=== PATIENT | male | born 1960 | race Caucasian/White ===

== ENCOUNTER 2017-07-01 10:49 | Inpatient (IN) ==
[2017-07-01] MEDS ORDERED: 0.9 % Sodium Chloride 2,000 ML ONE (10:51)
[2017-07-01] MEDS ORDERED: *HR* FentaNYL (PF) 100 MCG/2 ML VIAL ONE (10:53)
[2017-07-01] MEDS ORDERED: Aspirin 81 MG TAB.CHEW ONE (10:53)
[2017-07-01] MEDS ORDERED: *HR* Ticagrelor 90 MG TABLET ONE (10:53)
[2017-07-01] MEDS ORDERED: *HR* Heparin 5,000 UNIT/ML VIAL ONE (10:53)
[2017-07-01] MEDS ORDERED: *HR* Ticagrelor 90 MG TABLET PO ONE (10:59)
[2017-07-01] MEDS ORDERED: *HR* Heparin 5,000 UNIT/ML VIAL IVP ONE (10:59)
[2017-07-01] MEDS ORDERED: 0.9 % Sodium Chloride 1,000 ML IVC ONE (11:00)
[2017-07-01] MEDS ORDERED: *HR* Heparin 10,000 UNIT/10 ML VIAL ONE (11:00)
[2017-07-01] MEDS ORDERED: Nitroglycerin 1,000 MCG/10 ML VIAL IV ONE (11:01)
[2017-07-01] MEDS ORDERED: Heparin 1,000 UNITS/500 mL 500 ML ONE (11:01)
--- NOTE | 2017-07-01 11:01 | Emergency Department Note ---
START Narrative - START START: I examined this patient and my medical decision-making was reviewed with the Resident Physician. I agree with the documented findings, disposition and treatment plan as described except to the extent set forth below. 56-year-old male presents to the emergency room with chest pain and hypotension. EKG concerning for an inferior ischemia. We have alerted the catheter lab team. Patient will be sent to catheter lab. Dr. Paul spoke with the hearing aid fitter.
[2017-07-01] MEDS: 0.9 % Sodium Chloride 1,000 ML IVC SCH ×4 (11:03→20:34)
--- NOTE | 2017-07-01 11:03 | Emergency Department Note ---
Disposition Clinical Impression: ST elevation myocardial infarction (STEMI) Disposition: Admitted As Inpatient Condition: Critical Time of Disposition: 11:14 Chest Pain HPI - General Chief Complaint: ED Chest Pain Stated Complaint: Chest Pain Time Seen by Provider: 07/01/17 10:53 Source: EMS Mode of arrival: EMS Limitations: no limitations Vital Signs Reviewed: Yes Nursing Notes Reviewed: Yes - History of Present Illness HPI Narrative: 56-year-old male history of CAD, status post CABG 6 years ago, presents with chest pain similar to previous MA. States had some chest pain substernal. So she was shortness of breath and diaphoresis. Patient is complaining of severe chest pain substernal, 10 out of 10, patient had 1 nitroglycerin given in squad that brought his blood pressure down to 70/40 be given some of 500 mL of fluid, about half of this, his blood pressure came back up to 100 systolic, patient still complained of chest pain, he denies history of DVT or PE. Did take aspirin prior to EMS arrival. 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 Review of Systems: As Per HPI Constitutional: Denies: fever, chills Eyes: Denies: eye pain ENT ED: Denies: ear pain Cardiovascular: Reports: as per HPI, chest pain, dyspnea on exertion. Denies: orthopnea, syncope, paroxysmal nocturnal dyspnea Respiratory: Denies: cough, dyspnea Gastrointestinal: Denies: abdominal pain, nausea Genitourinary: Denies: urgency Musculoskeletal: Denies: back pain Integumentary: Denies: rash Chest Pain PMH - Past Medical History Medical history: Reports: coronary artery disease, myocardial infarction Physical Exam Constitutional: Middle-aged male appears in moderate distress I potential blood pressure 70/40 Eyes: PERRLA, sclera anicteric ENT & Mouth: MMM Neck: normal inspection, neck is supple Resp: CTA bilaterally, no resp distress: midline incision consistent with sternotomy and CABG. CV: RRR, no m/g/r +1 radial pulse bilaterally +2carotid GI: normal inspection, soft, no guarding or rigidity Neuro: A&O3, CNII-XII grossly intact, ORTEGA Skin: on limited exam, skin intact with no rashes or lesions Course Course Narrative: 56-year-old male with chest pain similar to previous MA, he is clutching his chest positive Reeves sign, as seen at bedside and EKG was obtained at activated STEMI 1053 immediately turned and activated the STEMI alert, as he has inferior ST segment elevations very subtle with inferior Q waves, about 1 mm of elevation in lead 3 and aVF, inverted T-wave in aVL, given her previous compare, STEMI alert was activated and immediately, as he also had drop in blood pressure of 30mmHg systolic from the nitroglycerin so very concern for RCA or inferior occlusion. I spoke with Dr. Lisa and the catheter team was available at bedside at 1103 patient was loaded with Brillinta, heparin bolus, given patient already received aspirin prehospital, patient was given a liter fluid bolus for hypotension, prepped for catheter lab and left the ED see nursing documentation for exact time about 1107 Chest Pain - Differential Diagnosis Likely: stable angina, unstable angina pectoris, atypical chest pain, st elevation myocardial infraction, chest pain - Medical Records Medical records reviewed: Yes I reviewed the patient's medical records. - Lab Data Lab results reviewed: Yes I reviewed the patient's lab results. - Radiology Data Radiology results reviewed: Yes I reviewed the patient's radiology results. - EKG Data EKG attestation: Yes I reviewed and interpreted this EKG. EKG shows normal: sinus rhythm Rate: bradycardia ST segment elevation in: II, III ST segment depression in: I, aVL Interpretation: acute MA - Core Measures AMI Core Measures Followed: Yes (Aspirin given in route) Heart Score - Score History: Highly Suspicious EKG: Significant ST-Depression Age: 45-65 Risk Factors: Equal/Greater than 3 risk factor or history of atherosclerotic disease Troponin: Less than normal limit HEART Score Total: 7
[2017-07-01 11:06] LABS: Basophils % 0.3 %; Eosinophils # 0.2 K/mcL (0.0-0.6); Eosinophils % 2.4 %; Hematocrit 46.8 % (37.5-50.1); Hemoglobin 15.2 g/dL (12.9-16.9); Immature Granulocytes % 0.2 % (0-4); Lymphocytes # 2.8 K/mcL (0.6-4.6); Lymphocytes % 31.5 %; Mean Corpuscular HGB Conc 32.5 g/dL (31.6-35.5); Mean Corpuscular Hemoglobin 29.7 pg (28.0-33.3); Mean Corpuscular Volume 91.6 fL (83.0-100.0); Mean Platelet Volume 9.4 fL (9.4-12.4); Monocytes # 0.7 K/mcL (0.0-1.3); Monocytes % 7.8 %; Platelet Count 185 K/mcL (140-400); Red Blood Count 5.11 M/mcL (4.19-5.50); Red Cell Distribution Width 13.2 % (11.5-14.5); Segmented Neutrophils % 57.8 %
[2017-07-01] MEDS ORDERED: *HR* Midazolam HCl 2 MG/2 ML VIAL ONE (11:06)
[2017-07-01] MEDS ORDERED: ISOVUE-370 200 ML INFUS..BTL IV ONE (11:07)
[2017-07-01] MEDS ORDERED: 0.9 % Sodium Chloride 1,000 ML ONE (11:07)
[2017-07-01 11:13] LABS: INR 1.1
[2017-07-01] MEDS ORDERED: *HR* Atropine Sulfate 1 MG/10 ML SYRINGE ONE (11:14)
[2017-07-01 11:15] LABS: Activated Partial Thrombo Time 29.8 Seconds (26.0-36.0)
[2017-07-01 11:27] LABS: BUN/Creatinine Ratio 22 (6-26); Blood Urea Nitrogen 23 mg/dL (6-20); Calcium 8.4 mg/dL (8.6-10.3); Carbon Dioxide 25 mEq/L (23-29); Chloride 106 mEq/L (98-107); Glucose 150 mg/dL (70-105); Osmolality,Calculated 289 (280-300); Potassium 4.3 mEq/L (3.5-5.1); Sodium 136 mEq/L (136-145); eGFR For African Americans > 60 (> 60); eGFR For Non-African Americans > 60 (> 60)
[2017-07-01] MEDS ORDERED: Nitroglycerin 0.4 MG TAB.SUBL SL PRN (11:54)
[2017-07-01] MEDS ORDERED: Ondansetron 4 MG/2 ML VIAL IVP PRN (11:54)
--- NOTE | 2017-07-01 13:52 | Invasive Diagnostic Lab Proc ---
Name: Forest Love Date of Study: 07/01/2017 Date: 1960 Ht: 72.0in Medical Record#: [id number] Age: 56 Wt: 264.55lb Gender: Male BSA: 2.4 Order #: [id number] BMI: 35.83 Physicians Procedure Physician: Frankie Lisa DO Referring MD: Referring MD: Staff Name Position Time In Zachary Ford RT (R) Monitor 11:03 AM YvesChristiano RT (R) Scrub 11:03 AM Shama Lange RN Labor Commissioner 11:04 AM Kisha Gilmore RN Labor Commissioner 11:14 AM Indications Indication STEMI Procedures Performed Procedure PRQ CARD REVASC DC 1 VSL L HRT ARTERY/VENTRICLE ANGIO Pre-Procedure Checklist Informed consent is complete signed and on chart. H&P is on chart. ID band is on and ID verified with patient. Patient NPO for procedure The procedure was described for the patient and questions were answered. Blood Pressure: 110/68 ECG is on chart. Rhythm: SR w ST elevation Plan of Care Patient will tolerate the procedure without complications. Adequate level of comfort will be maintained. Hemodynamics will remain stable Patient will recover from procedure without complications. Respiratory function will be maintained. Cardiac rhythm will remain stable. Patient temperature will be maintained. Patient and/or family have verbalized understanding of the procedure. Patient Education Chief Complaint/Reason for Test: Cardiac Cath Developmental Category: Adult (18-64 years) Developmentally Appropriate for Age: Yes Learning Barriers: None Education Needs: Procedure Education Method: Verbal Information Taught: Cardiac Cath Educational Evaluation: Able to repeat information Intravenous Access Time IV Size Location DC'd Fluid/Drip Rate Units RN 11:06 AM 22g 1" Patent On Arrival Rt Antecubital 0.9NaCl 25 ml/hr Shama Lange RN 11:07 AM 22g 1 " Peripheral-Lock On Arrival Lt Antecubital Allergies No Known Allergies Vital Signs Time BP (mmHg) HR (bpm) O2 Sat. RR (bpm) LOC 11:06 AM 110 / 68 64 100 % 24 5 = Fully awake and oriented or at pre-proc level 11:06 AM / % 4 = Oriented but drowsy 11:21 AM / % 4 = Oriented but drowsy 11:36 AM / % 4 = Oriented but drowsy 11:10 AM 110 / 68 73 % 12 11:15 AM 120 / 63 60 100 % 20 11:20 AM 115 / 77 74 100 % 15 11:25 AM 112 / 71 62 98 % 25 11:30 AM 116 / 68 79 99 % 19 11:35 AM 110 / 66 64 99 % 28 11:40 AM 103 / 64 65 100 % 9 11:45 AM 114 / 71 59 100 % 21 11:50 AM 112 / 71 60 100 % 18 11:55 AM 110 / 74 64 100 % 19 12:00 PM 118 / 64 64 100 % 23 12:17 PM 106 / 71 64 99 % 16 5 = Fully awake and oriented or at pre-proc level 12:30 PM 95 / 69 58 100 % 14 4 = Oriented but drowsy 12:45 PM 90 / 61 60 98 % 15 4 = Oriented but drowsy 01:00 PM 90 / 62 99 % 16 4 = Oriented but drowsy 01:40 PM 91 / 63 60 98 % 14 4 = Oriented but drowsy Procedural Medications Time Medication Dose Units Method Given By 11:09 AM Oxygen 2 L/min nasal cannula Shama Lange RN 11:14 AM Versed 2 mg Intravenous Shama Lange RN 11:16 AM Lidocaine 2% 10 ml Subcutaneous Frankie Lisa DO ASA Classification: CLASS IV- Severe systemic that is constant threat to patient's life Froilan Score Preprocedure Postprocedure Activity 2- Moves 4 extremities sustained head lift Activity 2- Moves 4 extremities sustained head lift Circulation 2- SBP +/= 20 points of pre-anesthetic level Circulation 2- SBP +/= 20 points of pre-anesthetic level Consciousness 2- Awake and alert oriented x 3 Consciousness 2- Awake and alert oriented x 3 O2 Saturation 2- Able to maintain O2 satruation of 92% on room air O2 Saturation 2- Able to maintain O2 satruation of 92% on room air Respiratory 2- Able to deep breathe and cough well Respiratory 2- Able to deep breathe and cough well Total Score 10 Total Score 10 Contrast Agent: Isovue Diagnostic Contrast: 150 ml Total Contrast: 150 ml Fluoro Dose: 1437 mGy Activated Clotting Time Time Seconds to Clot 11:23 AM 270 Procedure Log Time Note Enter By 11:03 AM Zachary Ford RT (R) Position: Monitor Time in: 11:03 [email or web address] 11:04 AM Christiano Ford RT (R) Position: Scrub Time in: 11:03 [email or web address] 11:04 AM Shama Lange RN Position: Labor Commissioner Time in: 11: 11:04 AM Patient charges- Angio tray pack, Navilyst 3mm J, Pulse Oximetry and ACIST tubing and transducer 11:05 AM Pt arrived to cardiac cath lab radiology technologist 2 at 11:05 [email or web address] 11:05 AM Case Delayed No 2 11: AM Time: 11:05 Patient comfortable and pain free: No 03/09chest pain [email or web address] : AM Time: LOC: 5 = Fully awake and oriented or at pre-proc level [email or web address] 11:08 AM CathStat 11:08 AM Clinical Presentation: STEMI or equivalent [email or web address] 11:08 AM Vitals capture started with the following parameters, Patient=Adult, Interval=5 min, Initial Afpmbofc=893 mmHg, Deflation Rate=5 mmHg, Cuff placed on Right Arm 11:09 AM Hair removed from procedure site in procedure lab using clippers. Bilateral groin prepped with Chloraprep by Kisha Gilmore RN, safety strap applied then patient was draped. Skin intact. : AM Recorded ECG: HR=63 Condition=Condition 1 11: AM Time: : Oxygen on at 2 L/min per nasal cannula by Shama Lange RN 11:10 AM Vitals capture started with the following parameters, Patient=Adult, Interval=5 min, Initial Owbreuxx=921 mmHg, Deflation Rate=5 mmHg, Cuff placed on Right Arm 11:10 AM HR=73 bpm, XJCV=772/68 mmhg, Resp=12 B/min 11:11 AM ASA Class CLASS IV- Severe systemic that is constant threat to patient's life 11:14 AM Physician arrived : 11:14 AM Meet and greet completed :14 AM Sign in performed according to hospital policy. 11:14 AM Procedure start :14 :14 AM Time: : Versed 2 mg Intravenous Given by Shama Lange RN 11:14 AM Kisha Gilmore RN Position: Labor Commissioner Time in: 11:14 11:15 AM Pressure channel 1 zeroed. 11:15 AM HR=60 bpm, HWNW=822/63 mmhg, UlE9=156.0 %, Resp=20 B/min 11:16 AM Time out performed according to hospital policy [email or web address] 11:16 AM Inflation device was opened. 11:16 AM Time: :16 10 ml Lidocaine 2% to right groin Subcutaneous Given by Frankie Lisa DO 11:17 AM Micro-Introducer Kit utilized for sheath placement [email or web address] 11:18 AM Access obtained by percutaneous puncture. 4Fr 11cm Cordis Bethany sheath placed in right Femoral vein. [id number] ilson 11:20 AM Access obtained by percutaneous puncture. 6Fr 10cm Terumo Penasco sheath placed in right Femoral artery. [id number] [email or web address] 11:20 AM HR=74 bpm, QODV=163/77 mmhg, MiD6=770.0 %, Resp=15 B/min 11:20 AM 0.035 145cm Navilyst 3mmJ wire [id number] 11:20 AM 5Fr FR 4 catheter inserted over the wire DNC 11:21 AM Time: 11:06 Patient comfortable and pain free: No bw 11:21 AM Time: 11:06LOC: 4 = Oriented but drowsy bw 11:21 AM Catheter selectively placed in left ventricle [email or web address] 11:22 AM Recorded Pressure: LV, HR=62, Condition=Condition 1 (Left Ventricle) LV 99/43/59 11:22 AM Recorded Pressure: LV, Ao, HR=63, Condition=Condition 1 (Left Ventricle) LV 107/2/16, (Aorta) Ao 108/40/81 11:22 AM hand injected LV gram [email or web address] 11:22 AM RCA angiography performed in multiple views. [email or web address] 11:22 AM Recorded Pressure: Ao, HR=64, Condition=Condition 1 (Aorta) Ao 107/64/82 11:23 AM At 11:23 the ACT was 270 seconds. [email or web address] 11:23 AM SVG to the RPDA angio performed in multiple views. [email or web address] 11:25 AM SVG to the 1st OM angio performed in multiple views. [email or web address] 11:25 AM HR=62 bpm, YYBZ=438/71 mmhg, SpO2=98.0 %, Resp=25 B/min 11:25 AM Left VERO to the LAD angio performed in multiple views. [email or web address] 11: AM 0.035 260cm Navilyst 3mmJ wire [id number] [email or web address] 11: AM Catheter removed [email or web address] 11: AM 5Fr FL 4 catheter inserted over the wire [email or web address] 11:27 AM LCA angiography performed in multiple views. 11: AM Coronary Dominance: right [email or web address] 11:27 AM Recorded Pressure: Ao, HR=60, Condition=Condition 1 (Aorta) Ao 98/63/77 11:28 AM Catheter removed [email or web address] 11:29 AM 6Fr XB LAD 3.5 [place] Bright-Tip guide catheter was used to cannulate the PCI vessel successfully. reused? No [email or web address] 11:30 AM HR=79 bpm, APMR=979/68 mmhg, SpO2=99.0 %, Resp=19 B/min 11:30 AM Guide catheter removed intact. [email or web address] 11:31 AM 6Fr XB LAD 4 [place] Bright-Tip guide catheter was used to cannulate the PCI vessel successfully. reused? No [email or web address] 11:31 AM Recorded Pressure: Ao, HR=65, Condition=Condition 1 (Aorta) Ao 101/63/80 11:32 AM Lesion found in Mid Circumflex. Pre Stenosis: 90 Pre BRYSON Flow: [email or web address] 11:32 AM .014 PT Graphix 300cm guide wire across target lesion- successful. reused? No [email or web address] 11:34 AM 2.25mm x 16mm Synergy drug-eluting stent across target lesion- successful Lot #[id number] ilson 11:35 AM Stent deployed @ 15 asmita for 19 seconds [email or web address] 11:35 AM Stent delivery system removed intact. [email or web address] 11:35 AM HR=64 bpm, JACE=794/66 mmhg, SpO2=99.0 %, Resp=28 B/min 11:36 AM Guide wire removed intact. [email or web address] 11:36 AM Time: 11:21 Patient comfortable and pain free: Yes [email or web address] 11:36 AM Circumflex, Obtuse Marginal, Left Posterior Descending, and Left Posterolateral Coronary Arteries with 90 % stenosis. If graft is supplying this area, 0 % stenosis [email or web address] 11:36 AM Time: 11:21LOC: 4 = Oriented but drowsy [email or web address] 11:36 AM Recorded Pressure: Ao, HR=63, Condition=Condition 1 (Aorta) Ao 93/59/74 11:36 AM Physician reviewing films [email or web address] 11:38 AM Guide catheter removed intact. [email or web address] 11:38 AM 5Fr MPB2 catheter inserted over the wire [id number] [email or web address] 11:40 AM SVG-RPDA angiography performed [email or web address] 11:40 AM HR=65 bpm, QZTK=865/64 mmhg, KmC1=098.0 %, Resp=9 B/min 11:40 AM Recorded Pressure: Ao, HR=66, Condition=Condition 1 (Aorta) Ao 91/53/70 11:41 AM Catheter removed [email or web address] 11:41 AM Bolus angiogram of right Femoral complete: hand injected [email or web address] 11:43 AM Arterial sheath pulled, Angio-seal closure device used and was Successful [id number] S/N. [email or web address] 11:44 AM Procedure completed at 11:44 [email or web address] 11:45 AM Sign out completed: Radiation Dose 1437.42 mGy Fluoro Time: 7.0 Isovue 370 - 200ml contrast 150 ml given by Frankie Lisa DO. Complications: NoneCardiac Rehab Consult needed: YesConfirmed administered medications: Yes [email or web address] 11:45 AM Isovue 370 - 200ml,1 Bottle(s) used. [email or web address] 11:45 AM Estimated Blood Loss: less than 20cc [email or web address] 11:45 AM Post ECG NSR [email or web address] 11:45 AM Post Blood Pressure 103/64 [email or web address] 11:45 AM HR=59 bpm, OMFJ=129/71 mmhg, WqT3=263.0 %, Resp=21 B/min 11:46 AM Information taught Cardiac Cath, PCI, and Angioseal [email or web address] 11:46 AM Education needs Procedure, Plan of Care, and Disease Process [email or web address] 11:46 AM Learning barriers :Sedated [email or web address] 11:46 AM Education Methods Verbal [email or web address] 11:46 AM Education evaluation Needs further instruction [email or web address] 11:46 AM Delay to floor yes bed availability [email or web address] 11:46 AM No Family [email or web address] 11:46 AM Complications: None [email or web address] 11:47 AM Fluoro Time: 7 [email or web address] 11:47 AM Isovue 370 - 200ml contrast 150 ml given by Frankie Lisa DO. [email or web address] 11:47 AM Radiation Dose 1437.42 mGy [email or web address] 11:48 AM venous sheath pulled rt groin Christiano Yves RT [email or web address] 11:50 AM HR=60 bpm, ODEP=150/71 mmhg, HyY0=825.0 %, Resp=18 B/min 11:52 AM Time: 11:36LOC: 4 = Oriented but drowsy [email or web address] 11:52 AM Time: 11:36 Patient comfortable and pain free: Yes [email or web address] 11:52 AM Lesion found in Mid RCA. Pre Stenosis: 99 Pre BRYSON Flow: [email or web address] 11:52 AM Right Coronary, Right Posterior Descending Arteries with Right Posterolateral and Acute Marginal branches with 99 % stenosis. If graft is supplying this area, 0 % stenosis [email or web address] 11:52 AM Lesion found in Mid LAD. Pre Stenosis: 100 Pre BRYSON Flow: [email or web address] 11:52 AM Mid/Distal Left Anterior Descending Coronary Artery and diagonal branches with 100% stenosis. If graft is supplying this area, 0 % stenosis [email or web address] 11:53 AM Lesion found in 1st Marginal. Pre Stenosis: 100 Pre BRYSON Flow: [email or web address] 11:53 AM Circumflex, Obtuse Marginal, Left Posterior Descending, and Left Posterolateral Coronary Arteries with 100 % stenosis. If graft is supplying this area, 0 % stenosis [email or web address] 11:55 AM HR=64 bpm, AIYJ=945/74 mmhg, EkC9=006.0 %, Resp=19 B/min 11:59 AM rt venous manual pressure held for 10 mins christiano ford rt [email or web address] 12:00 PM Site status No bleeding/hematoma - Rt Groin as reported by Christiano Ford RT (R) at 12:00 [email or web address] 12:00 PM Opsite applied [email or web address] 12:00 PM HR=64 bpm, ETYI=412/64 mmhg, ScQ4=409.0 %, Resp=23 B/min 12:00 PM Vitals capture stopped. 12:04 PM Patient out of room: 12:04 [email or web address] 12:18 PM pt resting comfortably in holding room no needs at this time call light within reach [email or web address] 01:46 PM Report given to agusto MEAD Pt taken to ICU Room #3. 13:46 tsites 01:46 PM pt taken to ICU 3 tsites Complications Complication None None Hemodynamics Pressures Site Systolic/A Wave Diastolic/V Wave Mean LV 99 43 59 LV 107 2 16 AO 108 40 81 AO 107 64 82 AO 98 63 77 AO 101 63 80 AO 93 59 74 AO 91 53 70 Post Procedure Information Blood Pressure: 103/64 mmHg Rhythm: NSR Post procedural instructions were given Closure Device Time Device Success/Fail 07/01/2017 11:43:00 AM Angio-Seal VIP Successful Site Checks Time Location Status Staff Sheath In? Note 12:00 PM Rt Groin No bleeding/hematoma Christiano Ford RT (R) 12:17 PM Rt Groin No bleeding/ No Hematoma Sites, Christiano RT (R) 12:29 PM Rt Groin No bleeding/ No Hematoma Sites, Christiano RT (R) 12:45 PM Rt Groin No bleeding/ No Hematoma Mikayla Ospina RN 01:00 PM Rt Groin No bleeding/ No Hematoma Kisha Gilmore RN No 01:39 PM Rt Groin No bleeding/ No Hematoma Sites, Christiano RT (R) No Pulses Time Site Pre-Procedure Post-Procedure Note 07/01/2017 11:07:00 AM Bilateral DP & PT 1+ 07/01/2017 12:17:00 PM Bilateral DP & PT 1+ 07/01/2017 12:30:00 PM Bilateral DP & PT 1+ 07/01/2017 12:45:00 PM Bilateral DP & PT 1+ 07/01/2017 1:00:00 PM Bilateral DP & PT 1+ 07/01/2017 1:39:00 PM Bilateral DP & PT 1+ Updated by Christiano Chun RT (R) on 07/01/2017 1:47:04 PM RT Sierra electronically signed on 07/01/2017 1:47:47 PM with status of Final
[2017-07-01] MEDS ORDERED: *HR* Morphine 2 MG/ML SYRINGE IVP PRN (15:41)
--- NOTE | 2017-07-01 15:45 | Event Note ---
Date of Encounter: 07/01/17 Time of Encounter: 15:30 - Cardiology Event Note Seen and examined. Admit for acute inferior STEMI s/p PCI to LCx. Paged to bedside due to 6/10 chest pain. ECG completed and reviewed with Dr. Lisa. No concerning ST/T wave abnormalities, inferior changes have resolved. Patient appears to be resting comfortably in bed. HR 70s, BP stable. After discussion with Dr. Lisa, recommend prn IV morphine 2 mg every 4 hours as needed.
--- NOTE | 2017-07-01 16:42 | Cardiology History & Physical ---
Date of Encounter: 07/01/17 Time of Encounter: 11:15 Assessment and Plan (1) ST elevation myocardial infarction (STEMI) Current Visit: Yes Status: Acute The assessment and plan as outlined above was discussed with the patient and/or family members who expressed understanding and agreement. All questions were answered. NEw ST segment elevation in inferior leads, discussed options, proceed with emergent LHC/Poss. Qualifiers: Involved coronary artery: unspecified coronary artery Qualified Code(s): I21.3 - ST elevation (STEMI) myocardial infarction of unspecified site (2) CAD (coronary artery disease) of artery bypass graft Current Visit: Yes Status: Chronic The assessment and plan as outlined above was discussed with the patient and/or family members who expressed understanding and agreement. All questions were answered. Severe triple vessel CAD, post CABG. Qualifiers: [place] vs. transplanted heart: [place] heart Associated angina: with unstable angina Qualified Code(s): I25.700 - Atherosclerosis of coronary artery bypass graft(s), unspecified, with unstable angina pectoris (3) Hypertension Current Visit: Yes Status: Acute The assessment and plan as outlined above was discussed with the patient and/or family members who expressed understanding and agreement. All questions were answered. Not well controlled, pt off meds, will monitor as reinstitute cardiac meds. Qualifiers: Hypertension type: essential hypertension Qualified Code(s): I10 - Essential (primary) hypertension (4) Diabetes Current Visit: Yes Status: Chronic The assessment and plan as outlined above was discussed with the patient and/or family members who expressed understanding and agreement. All questions were answered. Uncontrolled, pt off all medications for over eight months, will consult IM to evaluate and begin tx. Qualifiers: Diabetes mellitus type: type 2 Diabetes mellitus complication status: without complication Diabetes mellitus terminologist insulin use: without nursing home use Qualified Code(s): E11.9 - Type 2 diabetes mellitus without complications History of Present Illness Chief complaint: Chest pain HPI: H&P documentation completed post procedure to facilitate emergency intervention. Mr. Love is a 56 year old male who presented to ER with complaining of sudden onset mid sternal chest pain, occurred at rest, 10/10 at most severe, associated with shortness of breath, nausea and mild diaphoresis. Chest improved from 10/10 to 8/10 en route in the squad, after receiving one sublingual ntg. He did become hypotensive, but responded to IV fluids. He reports chest pain is just like his heart attack before he underwent bypass surgery in 2009. Pt reports has had chest pain on and off over last eight months , but pain today did not resolve over and hour, so he called the squad. He is non compliant with dietary restrictions, medications, follow up and continues to smoke up to a pack of cigarettes daily. Initial EKG shows new ST seg elevation in the inferior leads, different from previous EKG. Discussed options, recommend emergent LHC/poss as primary tx for developing STEMI. PT has stopped all medications, is not taking any diabetic or cardiac meds. z Past Med Surg Social Fam HX - Past Medical History Medical history: CHF, coronary artery disease, hypertension, myocardial infarction, other (Chronic low back pain, post surgical repair, on disability for back pain. ) - Past Surgical History Surgical History: coronary bypass (CABG) - Social History Smoking Status: Former smoker Packs per day: 1-2 cigarettes a day Smokeless Tobacco Status: No Alcohol use: none Drug use: marijuana Medications and Allergies 3 Allergy/AdvReac Type Severity Reaction Status Date / Time No Known Allergies Allergy Verified 07/01/17 10:50 ROS unobtainable: due to endotracheal tube ( ) All Systems Review: A 10-system review of systems was performed and is negative for pertinent findings except as documented above in the HPI. - Constitutional Constitutional: daytime sleepiness, snoring - Respiratory Respiratory: cough - Musculoskeletal Musculoskeletal: abnormal gait, arthralgias, back pain, other (pt on disability due to chronic low back pain, previous back surgery. ) - Neurological Neurological: numbness, tingling (of both lower extremities) Physical Examination Vital Signs, Last 4 Hours Temp Pulse Resp BP Pulse Ox 07/01/17 16:05 59 18 114/75 99 07/01/17 15:30 64 16 114/84 99 07/01/17 15:00 62 16 121/85 99 07/01/17 14:15 65 16 130/82 99 07/01/17 14:00 97.9 F 62 16 128/74 98 General: Conversant (Pt writhing in pain, clutching chest, has difficulty answering questions due to pain.) HEENT: Atraumatic, Normocephaly, Mucus Membranes Moist Neck: No JVD, Normal carotid pulses Cardiac: Reg Rate and Rhythm, Normal S1 and S2, No Murmur, Other (positive S4) Lungs: Normal Breath Sounds, No Wheeze, Rales, Rhonchi Neuro: Alert and responsive Abdomen: Soft, Non-Tender Skin: No rashes noted on visualized skin Musculoskeletal: No Chest Wall Tenderness Extremities: No Clubbing, No Cyanosis, No Edema, Normal Pulses Results 07/01/17 10:57 07/01/17 10:57
[2017-07-01] MEDS: *HR* Ticagrelor 90 MG TABLET PO SCH (20:33)
[2017-07-02] MEDS ORDERED: D5% in Water 1,000 ML IVC PRN ×2 (00:03→10:14)
[2017-07-02] MEDS ORDERED: *HR* Dextrose 50 % in Water (Syg) 50 ML SYRINGE IVP PRN ×2 (00:03→10:14)
[2017-07-02] MEDS ORDERED: Dextrose Gel 15 GM/37.5 ML TUBE PO PRN ×4 (00:03→10:14)
[2017-07-02 05:08] LABS: Basophils % 0.2 %; Eosinophils # 0.1 K/mcL (0.0-0.6); Eosinophils % 1.4 %; Hematocrit 45.7 % (37.5-50.1); Hemoglobin 15.1 g/dL (12.9-16.9); Immature Granulocytes % 0.2 % (0-4); Lymphocytes # 1.9 K/mcL (0.6-4.6); Lymphocytes % 20.1 %; Mean Corpuscular Hemoglobin 29.8 pg (28.0-33.3); Mean Corpuscular Volume 90.1 fL (83.0-100.0); Mean Platelet Volume 9.4 fL (9.4-12.4); Monocytes # 0.6 K/mcL (0.0-1.3); Monocytes % 6.6 %; Neutrophils # 6.6 K/mcL (1.6-8.9); Platelet Count 165 K/mcL (140-400); Red Blood Count 5.07 M/mcL (4.19-5.50); Red Cell Distribution Width 13.2 % (11.5-14.5); Segmented Neutrophils % 71.5 %
[2017-07-02 05:40] LABS: BUN/Creatinine Ratio 23 (6-26); Blood Urea Nitrogen 17 mg/dL (6-20); Calcium 8.2 mg/dL (8.6-10.3); Carbon Dioxide 24 mEq/L (23-29); Chloride 107 mEq/L (98-107); Glucose 155 mg/dL (70-105); Osmolality,Calculated 287 (280-300); Potassium 3.9 mEq/L (3.5-5.1); Sodium 136 mEq/L (136-145); eGFR For African Americans > 60 (> 60); eGFR For Non-African Americans > 60 (> 60)
[2017-07-02] MEDS ORDERED: Insulin LISPRO 300 UNITS/3 ML VIAL SQ SCH (07:30)
[2017-07-02 09:09] LABS: Hemoglobin A1C 6.5 %
[2017-07-02] MEDS: *HR* Ticagrelor 90 MG TABLET PO SCH ×2 (09:11→19:50)
--- NOTE | 2017-07-02 09:26 | Pulmonology Consult Note ---
<Ambrocio Rubalcava - Last Filed: 07/02/17 12:06> Date of Encounter: 07/02/17 Time of Encounter: 09:25 Assessment and Plan (1) ST elevation myocardial infarction (STEMI) Current Visit: Yes Status: Acute Patient presented with acute inferior STEMI Underwent LHC on 07/01/17 with a successful PTCA/ANA to the mid circumflex Of note, EF was 40%'s along with 2 of 3 bypass grafts patent Management per cardiology team Qualifiers: Involved coronary artery: left circumflex coronary artery Qualified Code(s) : I21.21 - ST elevation (STEMI) myocardial infarction involving left circumflex coronary artery (2) Diabetes Current Visit: Yes Status: Chronic Blood sugars are in the 150s Is currently on sliding scale protocol Patient is a great candidate for metformin on discharge given his recent A1c of 6.5 Printed prescription and gave to patient Qualifiers: Diabetes mellitus type: type 2 Diabetes mellitus complication status: with neurologic complications Diabetes mellitus complication detail: with unspecified neuropathy Diabetes mellitus termite helper insulin use: without termite helper use Qualified Code(s): E11.40 - Type 2 diabetes mellitus with diabetic neuropathy, unspecified (3) COPD (chronic obstructive pulmonary disease) Current Visit: Yes Status: Acute Current 1 ppd smoker. O2 sats 96-100% on room air He denies any wheezing or [place]. Patient will need Symbicort twice a day as well as DuoNeb nebulizers at home - Printed scripts and sent to patient Recommend follow-up with pulmonology in 8 weeks Qualifiers: COPD type: unspecified COPD Qualified Code(s): J44.9 - Chronic obstructive pulmonary disease, unspecified (4) WHITNEY (obstructive sleep apnea) Current Visit: Yes Status: Acute Recommend further desiccation with overnight sleep study and PSG as outpatient - Orders sent today and plan for scheduled at [facility] in 3 weeks (5) Hypertension Current Visit: Yes Status: Acute Well-controlled at this time Qualifiers: Hypertension type: essential hypertension Qualified Code(s): I10 - Essential (primary) hypertension (6) DVT prophylaxis Current Visit: Yes Status: Acute Heparin subcutaneous 5000 units every 8 hours History of Present Illness Consult date: 07/02/17 History of present illness: Mr. Love is a very pleasant 36-year-old male with past medical history of STEMI , CABG (2009), hypertension, 2 diabetes, COPD and WHITNEY who presents to the emergency room yesterday with a chief complaint of sudden onset midsternal chest pain. The pain was associated with shortness of breath, nausea and mild diaphoresis. The pain reduce mildly in the squad after receiving one sublingual nitroglycerin. He reports that the chest pain was similar to his previous heart attack when he underwent bypass surgery in 2009. Patient had this pain on and off for roughly 8 months and when the pain did not resolve for over an hour, she decided to call EMS. He is noncompliant with follow up and medications and prior to hospitalization he had not taken any medication for roughly one year. On arrival, his blood pressure was 70/40 and responded to 500 mL bolus. Patient did receive aspirin prior to arrival. There were new ischemic changes seen on EKG the case was discussed with Dr. Lisa at that time. Patient was started on Proventil, heparin bolus and ultimately received another 1 L fluid bolus. Patient subsequently underwent LHC for STEMI and had successful PTCA/DS 2 mid circumflex. Of note, there were 2 or 3 patent bypass grafts with an EF of 40%. Given his comorbid conditions, patient was transferred to the intensive care unit for overnight observation and thus, pulmonary/critical care team was consulted for diabetic regimen, COPD and WHITNEY recommendations. On evaluation, patient has never used insulin and does not follow a diabetic diet. Patient does not check his blood sugar on routine basis. On admission, her glucose has been in the 150s an A1c was checked at 6.5. Patient has a history of using metformin and unknown other oral agent with poor compliance. We will continue to monitor patient and offer further recommendations as needed. Past Med Surg Social Fam HX - Past Medical History Medical history: CHF, coronary artery disease, hypertension, myocardial infarction, other (Chronic low back pain, post surgical repair, on disability for back pain. ) - Past Surgical History Surgical History: coronary bypass (CABG) - Social History Smoking Status: Former smoker Packs per day: 1-2 cigarettes a day Smokeless Tobacco Status: No Alcohol use: none Drug use: marijuana Medications and Allergies Budesonide/Formoterol 160/4.5 [Symbicort 160/4.5] 2 puff IH BIDR #1 hfa.aer.ad 07/02/17 [Rx] Ipratropium/Albuterol Neb [Duoneb] 3 ml IH Q6HR PRN #4 vial.neb 07/02/17 [Rx] Metformin HCl [Metformin HCl ER] 500 mg PO DAILY #30 [id number] 07/02/17 [Rx] Nebulizer/Compressor [[place] Nebulizer] 1 each MC PRN PRN #1 each [Rx] Ticagrelor [Brilinta] 90 mg PO BID #60 tablet 07/02/17 [Rx] 3 Allergy/AdvReac Type Severity Reaction Status Date / Time No Known Allergies Allergy Verified 07/01/17 10:50 All Systems: A 10-system review of systems was performed and is negative for pertinent findings except as documented above in the HPI. - Constitutional Constitutional: no headache(s) - EENT Nose, mouth and throat: no change in voice - Cardiovascular Cardiovascular: no chest pain, no palpitations - Respiratory Respiratory: no cough - Gastrointestinal Gastrointestinal: no abdominal pain - Genitourinary Genitourinary: no hematuria - Musculoskeletal Musculoskeletal: no numbness - Neurological Neurological: no headache(s) - Psychiatric Psychiatric: no anxiety - Endocrine Endocrine: no flushing Physical Examination Vital Signs: Vital Signs, Last 4 Hours Temp Pulse Resp BP Pulse Ox 07/02/17 09:00 64 18 141/74 98 07/02/17 08:00 98.2 F 64 20 123/74 96 07/02/17 07:00 58 16 159/93 98 07/02/17 06:00 59 14 109/64 96 07/02/17 05:30 63 12 129/72 97 General appearance: no acute distress, alert Eyes: nonicteric ENT: oropharynx moist Neck: supple Effort: normal Inspection: normal Auscultation: bilateral: clear Cardiovascular: regular rate and rhythm Gastrointestinal: normoactive bowel sounds, soft, non-tender, non-distended Extremities: no cyanosis, no edema, pulses normal Musculoskeletal: no deformities normal mental status mood appropriate, affect normal Results - Laboratory Findings CBC and BMP: 07/02/17 04:45 07/02/17 04:45 PT/INR, D-dimer PT 12.0 Seconds (9.4-12.1) 07/01/17 10:57 Abnormal lab findings: Abnormal lab results Glucose 155 mg/dL (70-105) H 07/02/17 04:45 Hemoglobin A1c 6.5 % (-5.6) H 07/02/17 04:45 Calcium 8.2 mg/dL (8.6-10.3) L 07/02/17 04:45 - Clinical Findings Intake & Output: Intake & Output 07/01/17 07/02/17 07/02/17 23:59 07:59 15:59 Intake Total 1480 / 1480 Output Total 950 / 950 1300 / 1300 350 / 350 Balance 530 / 530 -1300 / -1300 -350 / -350 Weight 125 kg 124.8 kg Consult Discharge Plan - Plan Referrals: NONE,PCP [Primary Care Provider] - Joaquim Nagel MD [Partnered Physician] - (8 weeks) Prescriptions: Ipratropium/Albuterol Neb [Duoneb] 3 ml IH Q6HR PRN #4 vial.neb PRN Reason: Shortness Of Breath/Wheezing Budesonide/Formoterol 160/4.5 [Symbicort 160/4.5] 2 puff IH BIDR #1 hfa.aer.ad Metformin HCl [Metformin HCl ER] 500 mg PO DAILY #30 [id number] Nebulizer/Compressor [[place] Nebulizer] 1 each MC PRN PRN #1 each PRN Reason: Shortness Of Breath/Wheezing Ticagrelor [Brilinta] 90 mg PO BID #60 tablet <Joaquim Nagel - Last Filed: 07/02/17 22:21> Date of Encounter: 07/02/17 All Systems: A 10-system review of systems was performed and is negative for pertinent findings except as documented above in the HPI. Physical Examination Vital Signs: Vital Signs, Last 4 Hours Temp Pulse Resp BP Pulse Ox 07/02/17 19:12 98.0 F 64 16 107/69 95 Results - Laboratory Findings CBC and BMP: 07/02/17 04:45 07/02/17 04:45 PT/INR, D-dimer PT 12.0 Seconds (9.4-12.1) 07/01/17 10:57 Abnormal lab findings: Abnormal lab results Glucose 155 mg/dL (70-105) H 07/02/17 04:45 Hemoglobin A1c 6.5 % (-5.6) H 07/02/17 04:45 Calcium 8.2 mg/dL (8.6-10.3) L 07/02/17 04:45 - Clinical Findings Intake & Output: Intake & Output 07/02/17 07/02/17 07/02/17 07:59 15:59 23:59 Intake Total 1097 / 1097 Output Total 1300 / 1300 1200 / 1200 900 / 900 Balance -1300 / -1300 -1200 / -1200 197 / 197 Weight 125 kg 124.8 kg 123.3 kg - Attending Attestation I saw and evaluated this patient and my medical decision-making was reviewed with the Resident Physician. I agree with the documented findings, disposition and treatment plan as described except to the extent set forth below. We independently had [id number] contact with the patient Patient seen and examined at bedside Labs, radiology, chart personally reviewed. STOVE MOUNTER:Patient is conscious oriented x 3 following commands Pulm: Patient is on Room air no evidence of V/Q mismatch . Patient has COPD will send home on symbicort and Duoneb nebulizer and patient has suspected sleep apnea will arrange outpatient PSG , follow up with pulmonary as an outpatient Cards:STEMI management according to cardiology FEN-GI: Advance diet as tolerated Renal:Labs and output reviewed ID:No acute infectious issues Heme/Onc:Labs reviewed Endo: Diabetes mellitus counseled the importance of treating in the background of OR and CAD , patient is motivated will send him home on Metformin in the hospital will use insulin sliding scale Integ/MSK: Skin Care per routine ICU Nursing Protocol to prevent ulcers. Lines: All lines examined without evidence of infection : Dispo: Transfer according to Cardiology CODE:Full Code
--- NOTE | 2017-07-02 09:29 | Cardiology Progress Note ---
Date of Encounter: 07/02/17 Time of Encounter: 09:30 Assessment and Plan (1) ST elevation myocardial infarction (STEMI) Current Visit: Yes Status: Acute Presented with acute inferior STEMI. [facility] 07/01/17: EF 40%, s/p successful PTCA/ANA to mLCx, s/p 2 of 3 patent bypass grafts. TTE: EF 40-45%. Euvolemic upon exam. Change lopressor to Toprol-XL, start on 07/03. Post PCI education/guidelines discussed including importance of uninterrupted DAPT (asa + brilinta) for at least 1 year. Rx for Brilinta provided today, 30 day supply of brilinta to be delivered to room prior to d/c. Continue statin, betablocker. Cardiac rehab consult. No issues with cath site. Risk factor modification discussed. Transfer out of ICU today if beds available, plan for d/c home tomorrow. Qualifiers: Involved coronary artery: left circumflex coronary artery Qualified Code(s) : I21.21 - ST elevation (STEMI) myocardial infarction involving left circumflex coronary artery (2) CAD (coronary artery disease) of artery bypass graft Current Visit: Yes Status: Chronic Hx of 3v CAD s/p CABG. Plan as above. Qualifiers: [place] vs. transplanted heart: [place] heart Associated angina: without angina Qualified Code(s): I25.810 - Atherosclerosis of coronary artery bypass graft(s) without angina pectoris (3) Hypertension Current Visit: Yes Status: Acute Currently controlled. Adjust medications accordingly as inpt. Qualifiers: Hypertension type: essential hypertension Qualified Code(s): I10 - Essential (primary) hypertension (4) Diabetes Current Visit: Yes Status: Chronic Has been of all medications x8 months. IM consulted as inpatient for recommendations. Diabetes education. Will need close outpatient f/u with PCP. 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 All questions were answered. Thank you for involving us in the care of your patient. Please call with any questions. The patient was discussed and reviewed with Dr. Jimbo Sanchez. Subjective Principal diagnosis: STEMI Interval history: Patient presented as acute inferior STEMI s/p PCI to LCx. Hx of medical non-compliance. No events overnight, reports chest pain subsided yesterday afternoon. No issues with cath site. Objective Vital Signs, Last 4 Hours Temp Pulse Resp BP Pulse Ox 07/02/17 09:00 64 18 141/74 98 07/02/17 08:00 98.2 F 64 20 123/74 96 07/02/17 07:00 58 16 159/93 98 07/02/17 06:00 59 14 109/64 96 07/02/17 05:30 63 12 129/72 97 General: Conversant, No Apparent Distress HEENT: Atraumatic, Normocephaly, Mucus Membranes Moist Neck: No JVD, Normal carotid pulses Cardiac: Reg Rate and Rhythm, Normal S1 and S2, No Murmur Lungs: Normal Breath Sounds, No Wheeze, Rales, Rhonchi Neuro: Alert and responsive, No focal deficits noted Abdomen: Soft, Non-Tender Skin: No rashes noted on visualized skin Musculoskeletal: No Chest Wall Tenderness Extremities: No Clubbing, No Cyanosis, No Edema, Normal Pulses Results 07/02/17 04:45 07/02/17 04:45 Lab Results 07/02/17 07/02/17 04:45 04:45 WBC 9.2 Hgb 15.1 Hct 45.7 Plt Count 165 Sodium 136 Potassium 3.9 Chloride 107 Carbon Dioxide 24 BUN 17 Creatinine 0.73 Glucose 155 H Calcium 8.2 L Active Medications Aspirin (Aspirin) 81 mg PO DAILY LONG Stop: 01/01/18 10:31 Last Admin: 07/02/17 10:28 Dose: 81 mg Dextrose/Water (Dextrose 50% (Syg)) 25 ml IVP AD PRN PRN Reason: Hypoglycemia Stop: 01/01/18 00:04 Glucagon (Glucagen) 1 mg IM ONCE PRN PRN Reason: Hypoglycemia Stop: 01/01/18 00:04 Glucose (Gluctose) 15 gm PO ONCE PRN PRN Reason: Hypoglycemia Stop: 01/01/18 00:04 Glucose (Gluctose) 30 gm PO ONCE PRN PRN Reason: Hypoglycemia Stop: 01/01/18 00:04 Heparin Sodium (Porcine) (Heparin) 5,000 unit SQ Q8HR [facility] Stop: 01/01/18 10:01 Dextrose (Dextrose 5%) 1,000 mls @ 100 mls/hr IVC .Q10H PRN PRN Reason: HYPOGLYCEMIA Stop: 01/01/18 00:04 Insulin Human Lispro (Humalog) 0 units SQ TIDAC LONG PRN Reason: Protocol Stop: 01/01/18 07:31 Metoprolol Tartrate (Lopressor) 12.5 mg PO BID [facility] Stop: 12/31/17 21:01 Morphine Sulfate (Morphine Sulfate) 2 mg IVP Q4HR PRN; Protocol PRN Reason: Moderate Pain Stop: 12/31/17 15:42 Nitroglycerin (Nitroglycerin) 0.4 mg SL Q5MIN PRN PRN Reason: Chest Pain Stop: 12/31/17 11:55 Ondansetron HCl (Zofran) 4 mg IVP Q8HR PRN PRN Reason: Nausea And Vomiting Stop: 12/31/17 11:55 Rosuvastatin Calcium (Crestor) 20 mg PO HS [facility] Stop: 12/31/17 21:01 Ticagrelor (Brilinta) 90 mg PO BID [facility] Stop: 12/31/17 21:01 - Imaging and Cardiology Echo: pending Cardiac cath: report reviewed Other Results: 12 hour tele: avg HR=62 SR. No significant event noted. Consult Discharge Plan - Plan Referrals: NONE,PCP [Primary Care Provider] - Prescriptions: Ticagrelor [Brilinta] 90 mg PO BID #60 tablet
[2017-07-02] MEDS ORDERED: *HR* Heparin 5,000 UNIT/ML VIAL SQ SCH (10:00)
[2017-07-02] MEDS ORDERED: Nitroglycerin 0.4 MG TAB.SUBL SL PRN (10:14)
[2017-07-02] MEDS ORDERED: Ondansetron 4 MG/2 ML VIAL IVP PRN (10:14)
[2017-07-02] MEDS ORDERED: *HR* Morphine 2 MG/ML SYRINGE IVP PRN (10:14)
[2017-07-02] MEDS: Aspirin 81 MG TAB.CHEW PO SCH (10:28)
[2017-07-02] MEDS: Insulin LISPRO 300 UNITS/3 ML VIAL SQ SCH ×2 (11:30→16:40)
--- NOTE | 2017-07-02 13:45 | Electrocardiograph Report ---
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
[2017-07-02] MEDS: *HR* Heparin 5,000 UNIT/ML VIAL SQ SCH ×2 (15:52→23:24)
--- NOTE | 2017-07-02 17:48 | Electrocardiograph Report ---
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
[2017-07-02] MEDS ORDERED: *HR* HYDROcodone/Acet 5/325 mg TABLET PO ONE (23:10)
[2017-07-03 05:31] LABS: Basophils % 0.5 %; Eosinophils # 0.3 K/mcL (0.0-0.6); Hemoglobin 16.2 g/dL (12.9-16.9); Immature Granulocytes % 0.3 % (0-4); Lymphocytes # 2.4 K/mcL (0.6-4.6); Lymphocytes % 30.6 %; Mean Corpuscular HGB Conc 34.5 g/dL (31.6-35.5); Mean Corpuscular Hemoglobin 30.5 pg (28.0-33.3); Mean Corpuscular Volume 88.3 fL (83.0-100.0); Mean Platelet Volume 9.4 fL (9.4-12.4); Monocytes # 0.6 K/mcL (0.0-1.3); Neutrophils # 4.5 K/mcL (1.6-8.9); Platelet Count 173 K/mcL (140-400); Red Blood Count 5.32 M/mcL (4.19-5.50); Red Cell Distribution Width 13.2 % (11.5-14.5); Segmented Neutrophils % 57.6 %
[2017-07-03 05:57] LABS: BUN/Creatinine Ratio 20 (6-26); Blood Urea Nitrogen 15 mg/dL (6-20); Calcium 8.7 mg/dL (8.6-10.3); Carbon Dioxide 25 mEq/L (23-29); Chloride 106 mEq/L (98-107); Glucose 157 mg/dL (70-105); Osmolality,Calculated 284 (280-300); Potassium 3.7 mEq/L (3.5-5.1); Sodium 135 mEq/L (136-145); eGFR For African Americans > 60 (> 60); eGFR For Non-African Americans > 60 (> 60)
[2017-07-03] MEDS ORDERED: Metoprolol XL (24 HR) Succ 25 MG TAB.ER.24H PO SCH (09:00)
[2017-07-03] MEDS: Insulin LISPRO 300 UNITS/3 ML VIAL SQ SCH (09:13)
[2017-07-03] MEDS: *HR* Ticagrelor 90 MG TABLET PO SCH (09:22)
[2017-07-03] MEDS: Aspirin 81 MG TAB.CHEW PO SCH (09:23)
[2017-07-03] MEDS: *HR* Heparin 5,000 UNIT/ML VIAL SQ SCH (09:23)
--- NOTE | 2017-07-03 11:14 | Discharge Summary ---
Date of Encounter: 07/03/17 Time of Encounter: 11:14 - Discharge Diagnosis (1) ST elevation myocardial infarction (STEMI) Priority: Primary Status: Acute Qualifiers: Involved coronary artery: left circumflex coronary artery Qualified Code(s) : I21.21 - ST elevation (STEMI) myocardial infarction involving left circumflex coronary artery (2) CAD (coronary artery disease) of artery bypass graft Priority: Primary Status: Chronic Qualifiers: [place] vs. transplanted heart: [place] heart Associated angina: without angina Qualified Code(s): I25.810 - Atherosclerosis of coronary artery bypass graft(s) without angina pectoris (3) Hypertension Priority: Secondary Status: Acute Qualifiers: Hypertension type: essential hypertension Qualified Code(s): I10 - Essential (primary) hypertension (4) WHITNEY (obstructive sleep apnea) Priority: Secondary Status: Acute (5) Diabetes Priority: Secondary Status: Chronic Qualifiers: Diabetes mellitus type: type 2 Diabetes mellitus complication status: with neurologic complications Diabetes mellitus complication detail: with unspecified neuropathy Diabetes mellitus senior care insulin use: without buttermaker use Qualified Code(s): E11.40 - Type 2 diabetes mellitus with diabetic neuropathy, unspecified - Discharge Medications Prescriptions: Nitroglycerin 0.4 mg SL Q5MIN PRN #30 tab.subl PRN Reason: Chest Pain Ipratropium/Albuterol Neb [Duoneb] 3 ml IH Q6HR PRN #4 vial.neb PRN Reason: Shortness Of Breath/Wheezing Aspirin 81 mg PO DAILY #30 tab.chew Budesonide/Formoterol 160/4.5 [Symbicort 160/4.5] 2 puff IH BIDR #1 hfa.aer.ad Lisinopril [Zestril] 5 mg PO DAILY #30 tablet Metformin HCl [Metformin HCl ER] 500 mg PO DAILY #30 [id number] Metoprolol XL (24 HR) Succ [Toprol Xl] 25 mg PO DAILY #30 tab.er.24h Nebulizer/Compressor [[place] Choice Nebulizer] 1 each MC PRN PRN #1 each PRN Reason: Shortness Of Breath/Wheezing Rosuvastatin [Crestor] 20 mg PO HS #30 tablet Ticagrelor [Brilinta] 90 mg PO BID #60 tablet Home Medications: Budesonide/Formoterol 160/4.5 [Symbicort 160/4.5] 2 puff IH BIDR #1 hfa.aer.ad 07/02/17 [Rx] Ipratropium/Albuterol Neb [Duoneb] 3 ml IH Q6HR PRN #4 vial.neb 07/02/17 [Rx] Metformin HCl [Metformin HCl ER] 500 mg PO DAILY #30 [id number] 07/02/17 [Rx] Nebulizer/Compressor [[place] Choice Nebulizer] 1 each MC PRN PRN #1 each [Rx] Ticagrelor [Brilinta] 90 mg PO BID #60 tablet 07/02/17 [Rx] Aspirin 81 mg PO DAILY #30 tab.chew 07/03/17 [Rx] Lisinopril [Zestril] 5 mg PO DAILY #30 tablet 07/03/17 [Rx] Metoprolol XL (24 HR) Succ [Toprol Xl] 25 mg PO DAILY #30 tab.er.24h 07/03/17 [ Rx] Nitroglycerin 0.4 mg SL Q5MIN PRN #30 tab.subl 07/03/17 [Rx] Rosuvastatin [Crestor] 20 mg PO HS #30 tablet 07/03/17 [Rx] Allergies/Adverse Reactions: 3 Allergy/AdvReac Type Severity Reaction Status Date / Time No Known Allergies Allergy Verified 07/01/17 10:50 Procedures/tests Complete & Pending: Procedures Performed prior 72 hours Category Date Time Status ECG 12 lead ECG [ECG] Routine Y 07/01/17 11:54 Ordered ECG 12 lead ECG [ECG] Routine Y 07/02/17 07:00 Ordered ECG 12 lead ECG [ECG] Stat Y 07/01/17 11:54 Completed EKG [ECG 12 lead ECG] [ECG] Stat Y 07/01/17 15:27 Completed EV echocardiogram Routine Y 07/01/17 11:54 Completed Date of admission: 07/01/17 11:09 Primary care physician: PCP NONE Consults: 07/01/17 11:54 Consult to Cardiac Rehabilitation-Phase1 [CONS] Routine Comment: Reason for Consult: AMI Call Completed: Yes Consult to Nurse Navigator [CONS] Routine Comment: 07/01/17 18:20 Consult to Hospitalist [CONS] Routine Consulting Provider: Hospitalist [place] Reason for Consult: diabetic evaluation and management Time Notified: 18:20 Call Completed: Yes 07/02/17 07:55 Consult to Critical Care [CONS] Stat Consulting Provider: [facility] [place] Reason for Consult: COPD, WHITNEY, DM Call Completed: Yes 07/02/17 09:31 Consult to Diabetes Education [CONS] Routine Comment: Reason for Consult: hx of noncompliance with diabetic diet/meds Discharging clinician: Vito Yost Anticipated date of discharge: 07/03/17 - Patient Status Disposition: Home, Self-Care Condition: Fair Functional capacity at discharge: independent ambulation Overall status at discharge: patient is progressing back to baseline - Ambulatory Orders Ambulatory Orders: Sleep Study Time Frame: 3 Weeks, Facility: [facility], Location: [facility].Baseline ([id number]) Time Frame: 3 Weeks, Facility: [facility], Location: [facility].Baseline ([id number]) Time Frame: 07/23/17, Facility: [facility], Location: [facility] - Discharge Instructions Follow Up With: NONE,PCP [Primary Care Provider] - Joaquim Nagel MD [Partnered Physician] - (8 weeks) Additional Instructions: RISK FACTORS: STOP SMOKING: If you smoke, STOP. Smoking or tobacco use significantly increases your risk of heart disease because nicotine causes the arteries to narrow or constrict. It also causes fats to stick to the artery. Your chances of having a heart attack are greatly increased if you continue to smoke. For more information, call the education line for smoking cessation 5-612-ZRZFLNO EAT A LOW FAT/CHOLESTEROL/SODIUM DIET: This diet may help reduce your chances of having a heart attack. LIFTING: Avoid lifting anything more than 10 pounds for 5-7 days Prior to straining, laughing, sneezing and/or coughing, apply manual pressure directly over insertion site. ACTIVITY: You may walk or climb stairs as tolerated You can resume sexual activity as tolerated In general, you are encouraged to engage in a minimum of 30 minutes or more of moderate intensity physical activity, such as brisk walking, daily or at least 3 -4 times weekly BATHING Do not submerge the site into water (bath tub, hot tub, swimming pool) for 1 week. This can be a source for infection into the blood stream. You may shower after 24 hours SITE CARE: After 24 hours, you may remove the dressing and leave the site open to air. Keep the site clean and dry. Clean gently and pat dry. You can expect bruising and tenderness that gradually resolve within a week or two. Return to work as instructed per your physician Resume driving as instructed per physician Keep all scheduled follow up appointments Resume medications as instructed IMPORTANT: If prescribed a Platelet Aggregation Inhibitor such as, Plavix, Brilinta or Effient: Duration of therapy is minimum one year These medications are often used in combination with Aspirin in prevention of future heart attacks Never discontinue unless consult with your Community Support Professional STROKE (CVA) Risk factors for a stroke are: Age, cigarette smoking, diabetes, excessive alcohol consumption, family history, high blood pressure, overweight, physical inactivity, prior stroke, heart attack, diagnosis of carotid artery stenosis or other artery disease. Warning signs: Sudden numbness or weakness of the face, arm or leg; especially on one side of the body, sudden confusion, trouble speaking or understanding, sudden trouble seeing in one or both eyes, sudden trouble walking, dizziness, loss of balance or coordination, sudden severe headache with no cause. Call 911 or go to the Emergency Room. CONGESTIVE HEART FAILURE: If you have been diagnosed with Congestive Heart Failure (CHF) and your symptoms return, make an appointment with your physician Weigh yourself daily. Notify your physician if you have a weight gain of two or more pounds in one day or five or more pounds in one week. If you experience any difficulty breathing, please call 911 BLEEDING: Although the risk of bleeding is minimal, it can happen. If you have any bleeding from the site, apply firm pressure above the puncture site for 10-15 minutes. If the bleeding does not stop, continue manual pressure and call 911 Contact your physician if: You develop a fever greater than 101 degrees Fahrenheit Your site becomes reddened or has any drainage You have an increase in pain or burning at the site or if a large knot forms at the site. If you experience chest pain, shortness of breath, dizziness, or extreme tiredness, stop the activity and rest. Please notify your physicians office if you experience any of these symptoms and they are not relieved by rest please call 911! - Diet and Activity Activity: increase activity as tolerated Diet: low fat, low cholesterol, low salt diet - Hospital Course Hospital course: Mr. Love is a 56 year old male with PMH of CAD s/p CABG, HTN, DM that presented with acute inferior STEMI 07/01/17. LHC 07/01/17: EF 40%, s/p successful PTCA/ANA to mLCx, s/p 2 of 3 patent bypass grafts. TTE: EF 40-45%. Euvolemic upon exam. Changed lopressor to Toprol-XL, started on 07/03/17. Post PCI education/ guidelines discussed including importance of uninterrupted DAPT (asa + brilinta ) for at least 1 year. Rx for Brilinta provided today, 30 day supply of brilinta was supposed to be delivered to room and was not. Will send pt with Rx and stressed importance of getting it filled. Continue statin, betablocker. acei. Cardiac rehab consult. No issues with cath site. Risk factor modification discussed. Labs and vitals stable. No events on tele. Pt has type 2DM, has been of all medications x8 months. Hospitalist started Metformin at discharge, will need close outpatient f/u with PCP. Pulmonology started Symbicort for COPD and ordered outpt sleep study for WHITNEY. Smoking cessation counseling given, denies need for nicotine patches. Follow-up with cardiology in 1 week--will coordinate. Restrictions discussed. Time spent discussing smoking cessation with patient: 3 to 10 minutes - Time Spent with Patient Total time spent providing and/or coordinating discharge services: Less than 30 minutes Physical Examination Vital Signs, Last 4 Hours Temp Pulse Resp BP Pulse Ox 07/03/17 07:37 97.8 F 72 14 135/78 93 Vital Signs Temp Pulse Resp BP Pulse Ox 07/03/17 11:27 97.8 F 71 14 109/87 93 07/03/17 07:37 97.8 F 72 14 135/78 93 07/03/17 04:00 97.7 F 60 18 109/76 94 07/03/17 00:19 97.8 F 66 16 123/71 94 07/02/17 19:12 98.0 F 64 16 107/69 95 07/02/17 16:30 97.8 F 07/02/17 16:00 65 18 118/85 96 07/02/17 12:11 98.1 F 07/02/17 12:00 56 20 123/85 98 Intake and Output 0202/18 02/03/18 02/03/18 23:59 07:59 15:59 Intake Total 1097 / 1097 920 / 920 240 / 240 Output Total 900 / 900 1000 / 1000 600 / 600 Balance 197 / 197 -80 / -80 -360 / -360 Intake: Oral 860 / 860 920 / 920 240 / 240 Other 237 / 237 Output: Urine 900 / 900 1000 / 1000 600 / 600 Other: Meal Breakfast Percent of Meal Consumed 100% Stool Size Moderate Stool Consistency formed Stool Color Brown # Voids 1 2 Weight 123.3 kg Blood Glucose* 116 121 General: Conversant, No Apparent Distress HEENT: Atraumatic, Normocephaly, Mucus Membranes Moist Neck: No JVD, Normal carotid pulses Cardiac: Reg Rate and Rhythm, Normal S1 and S2, No Murmur Lungs: Normal Breath Sounds, No Wheeze, Rales, Rhonchi Neuro: Alert and responsive, No focal deficits noted Abdomen: Soft, Non-Tender Skin: Other (right femoral access site healing well. No bleeding or hematoma, mild ecchymosis.) Musculoskeletal: No Chest Wall Tenderness Extremities: No Clubbing, No Cyanosis, No Edema, Normal Pulses
[2017-07-03 11:30] VITALS: BP 109/87
== END 2017-07-03 13:44 | disposition home or self-care (01) | DRG 247 ==
LOC: EMEROO 10:49 → ICNU 11:03 → 2NENU 07-02 18:47
PROVIDERS: ADMIT Internal Medicine Cardiovascular Disease; ATTEND Internal Medicine Cardiovascular Disease